=== PATIENT | male | born 1960 | race Caucasian/White ===

== ENCOUNTER → 2020-09-22 | Outpatient (CLI) | payer OTHER ==
[~2020-09-22] VITALS: Ht 180.3 cm; Wt 117.9 kg
[~2020-09-22] MED LIST: CELECOXIB100 MG PO; LIPITOR 20 MG T20 M1 PO; LISINOPRIL20 MG PO; NEURONTIN 300M300 M2 PO; NORVASC 2.5 MG2.5 M1 PO; PROTONIX40 M2 PO; SUPER THERAVIT1 EACH PO; TRAMADOL 50 MG50 MG PO; VITAMIN D250 MCG PO; XARELTO20 MG PO
[2020-09-22 13:08] VITALS: BP 107/66
[2020-09-22 13:18] LABS: HEMATOCRIT 44.6 % (42.0-52.0); HEMOGLOBIN 14.9 gm/dL (14.0-18.0); MCH 29.5 pg (26.0-34.0); MCHC 33.4 g/dL (28.0-37.0); MCV 88.4 fL (80.0-100.0); RBC 5.04 mil/uL (4.50-6.00); RDW 15.7 % (10.5-14.5); WBC 9.9 thou/uL (4.0-11.0)
[2020-09-22 13:29] LABS: CALCIUM 9.3 mg/dL (8.5-10.1); CREATININE 1.1 mg/dL (0.7-1.3); POTASSIUM 4.3 mmol/L (3.5-5.1)
== END | disposition home or self-care (01) ==
LOC: CATH 08:41
PROVIDERS: ATTEND Nuclear Medicine Nuclear Cardiology
DX: Z45.89 Encounter for adjustment and management of other implanted devices (principal); I49.9 Cardiac arrhythmia, unspecified; I10 Essential (primary) hypertension; E78.5 Hyperlipidemia, unspecified; K21.9 Gastro-esophageal reflux disease without esophagitis; F17.210 Nicotine dependence, cigarettes, uncomplicated; Z98.890 Other specified postprocedural states; Z79.899 Other long term (current) drug therapy; Z82.49 Family history of ischemic heart disease and other diseases of the circulatory system; Z88.0 Allergy status to penicillin; Z88.8 Allergy status to other drugs, medicaments and biological substances